=== PATIENT | male | born 2000 | race Asian ===

== ENCOUNTER 2019-11-04 20:33 | Emergency (ER) | payer SELFPAY ==
[~2019-11-04] VITALS: Ht 175.3 cm; Wt 69.9 kg
[2019-11-04 20:38] VITALS: Ht 175.3 cm; Wt 69.9 kg
[2019-11-05 00:15] VITALS: BP 117/69
== END 2019-11-05 00:19 | disposition home or self-care (01) ==
LOC: ED 20:33
DX: J98.01 Acute bronchospasm (principal)
CPT/HCPCS: J7613; J7644; Q0092